=== PATIENT | female | born 1990 ===

== ENCOUNTER 2016-12-20 17:30 | Emergency (ER) | payer MEDICAID ==
[2016-12-20 17:42] VITALS: BMI 27.4
[2016-12-20 17:48] VITALS: BP 111/73; PULSE 88; RESP 18; TEMP 98.7; O2SAT 99
--- NOTE | 2016-12-20 18:49 | ED PDOC ---
Arrival/HPI - General Chief Complaint: Back Pain Time Seen by Provider: 12/20/16 17:57 Historian: Patient - History of Present Illness Narrative History of Present Illness (Text): 12/20/16 20:03 26 yo F, currently 18 wks , with h/o sciatica, reports R sided low back pain, which is typical of her sciatica symptoms for the past several days. States that she is unsure of what medication to take since she is . Denies any trauma, injury, fever, chills, urinary symptoms, abdominal pain, vagina bleeding, bowel / bladder incontinence, weakness and numbness. Past Medical History - Provider Review Nursing Documentation Reviewed: Yes - Infectious Disease Hx of Infectious Diseases: None - Musculoskeletal/Rheumatological Hx Back Pain: Yes Other/Comment: Sciatica - Psychiatric Hx Bipolar Disorder: Yes Hx Substance Use: Yes - Anesthesia Hx Anesthesia: No Family/Social History - Physician Review Nursing Documentation Reviewed: Yes Family/Social History: No Known Family HX Smoking Status: before pre Hx Alcohol Use: Yes (before ) Frequency of alcohol use: Socially Hx Substance Use: Yes Substance used: marijuana Allergies/Home Meds Allergies/Adverse Reactions: Allergies No Known Allergies Allergy (Verified 12/20/16 17:41) Home Medications: Home Meds Medication Instructions Recorded Confirmed Lamotrigine [Lamictal] 1 tab PO DAILY 12/20/16 12/20/16 Vit Calc,Iron,Folic 1 tab PO DAILY 12/20/16 12/20/16 [ Vitamins] QUEtiapine [SEROquel] 100 mg PO DAILY 12/20/16 12/20/16 Review of Systems - Review of Systems Constitutional: Normal, Weight Change (related to ). absent: Fatigue, Fevers Respiratory: Normal. absent: SOB, Cough, Sputum Cardiovascular: Normal. absent: Chest Pain, Palpitations, Edema Gastrointestinal: Normal. absent: Abdominal Pain, Stool Changes, Appetite Changes Genitourinary Female: Normal. absent: Dysuria, Frequency, Hematuria Musculoskeletal: Normal, Back Pain. absent: Arthralgias, Neck Pain Skin: Normal. absent: Rash, Pruritis, Skin Lesions Physical Exam Vital Signs Reviewed: Yes Vital Signs Temp Pulse Resp BP Pulse Ox 12/20/16 17:47 98.7 F 88 18 111/73 99 Temperature: Afebrile Blood Pressure: Normal Pulse: Regular Respiratory Rate: Normal Appearance: Positive for: Well-Appearing, Non-Toxic, Comfortable Pain Distress: None Mental Status: Positive for: Alert and Oriented X 3 - Systems Exam Head: Present: Atraumatic, Normocephalic Neck: Present: Normal Range of Motion. No: MIDLINE TENDERNESS Respiratory/Chest: Present: Clear to Auscultation, Good Air Exchange. No: Respiratory Distress, Accessory Muscle Use, Wheezes, Rales, Rhonchi Cardiovascular: Present: Regular Rate and Rhythm, Normal S1, S2. No: Murmurs Abdomen: No: Tenderness, Distention, Rebound, Guarding, Mass/Organomegaly Back: Present: Normal Inspection. No: CVA Tenderness, Midline Tenderness, Paraspinal Tenderness Upper Extremity: Present: Normal Inspection, Normal ROM, NORMAL PULSES. No: Edema Lower Extremity: Present: Normal Inspection, NORMAL PULSES, Normal ROM. No: Edema Neurological: Present: GCS=15, CN II-XII Intact, Speech Normal, Motor Func Grossly Intact, Normal Sensory Function, Normal Cerebellar Funct, Gait Normal Skin: Present: Warm, Dry, Normal Color. No: Rashes Psychiatric: Present: Alert, Oriented x 3 Medical Decision Making ED Course and Treatment: 12/20/16 20:07 26 yo F, currently 18 wks , with h/o sciatica, reports R sided low back pain, which is typical of her sciatica symptoms for the past several days. Based on history and exam : likely low back pain, consider sciatica. Pt advised to OTC tylenol for pain as it is the only safe medication to take. Given Rx for flexeril (preg cat B). Advised to f/u with her pmd or OB for re- evaluation. Otherwise to return to the ER at any time for any new or worsening symptoms. - PA / MILK INSPECTOR / Resident Statement MD/DO has reviewed & agrees with the documentation as recorded. Disposition/Present on Arrival - Present on Arrival Any Indicators Present on Arrival: No History of DVT/PE: No History of Uncontrolled Diabetes: No Urinary Catheter: No History of Decub. Ulcer: No History Surgical Site Infection Following: None - Disposition Have Diagnosis and Disposition been Completed?: Yes Diagnosis: , Sciatica Disposition: HOME/ ROUTINE Disposition Time: 18:30 Patient Plan: Discharge Condition: STABLE Discharge Instructions (ExitCare): Sciatica (ED) Print Language: [place] Additional Instructions: Follow up with your pmd / OB in 2 days for re-evaluation. Continue taking tylenol. Take medication as prescribed. Return to the ER at any time for any new or worsening symptoms. Prescriptions: Cyclobenzaprine [Cyclobenzaprine HCl] 10 mg PO TID PRN #15 tab PRN Reason: Muscle Spasm Referrals: PCP,NO [Primary Care Provider] - Follow up with primary Forms: WORK NOTE
== END 2016-12-20 19:23 | disposition home or self-care (01) ==
LOC: ED 17:30
DX: O26.892 Other specified pregnancy related conditions, second trimester (principal); Z3A.18 18 weeks gestation of pregnancy; M54.30 Sciatica, unspecified side

== ENCOUNTER 2017-07-13 22:17 | Emergency (ER) | payer MEDICAID, OTHER ==
[2017-07-13 22:32] VITALS: BMI 29.0
[2017-07-13 22:33] VITALS: RESP 18
[2017-07-13] MEDS ORDERED: Sodium Chloride 0.9% 1,000 ML IV SCH (23:30)
[2017-07-13 23:57] LABS: BASO # 0.01 K/mm3 (0.0-2.0); BASO % 0.1 % (0.0-3.0); EOS # 0.1 (0.0-0.7); EOS % 0.8 % (1.5-5.0); GRAN # 8.56 (1.4-6.5); GRAN % 86.1 % (50.0-68.0); HEMOGLOBIN 12.2 g/dL (12.0-16.0); LYMPH # 0.9 (1.2-3.4); LYMPH % 8.7 % (22.0-35.0); MEAN CORPUSCULAR HEMOGLOBIN 28.6 pg (25.0-35.0); MEAN CORPUSCULAR HGB CONC 32.2 g/dl (31.0-37.0); MEAN PLATELET VOLUME 10.2 fl (7.0-11.0); MONO # 0.4 (0.1-0.6); MONO % 4.3 % (1.0-6.0); RBC 4.26 10^6/uL (3.5-6.1); RED CELL DISTRIBUTION WIDTH 12.3 % (11.5-14.5); WHITE BLOOD COUNT 9.9 10^3/ul (4.5-11.0)
--- NOTE | 2017-07-13 23:58 | ED PDOC ---
Arrival/HPI - General Chief Complaint: Flu-like Symptoms Time Seen by Provider: 07/13/17 23:01 Historian: Patient - History of Present Illness Narrative History of Present Illness (Text): 07/13/17 23:58 Alicia Pagan is a 26 year old female, whose past medical history includes sciatica, who presents to the emergency department complaining of flu-like symptoms. Patient states she has been experiencing productive cough with phlegm , body aches, diarrhea, and chills since yesterday. Patient notes associated headache and chest pain with deep inspiration. Patient became concerned and came in for further evaluation. Patient denies any fever, shortness of breath, nausea, vomiting, back pain, neck pain, dizziness, or any other complaints. Time/Duration: < week Symptom Onset: Gradual Symptom Course: Unchanged Activities at Onset: Light Context: Home Past Medical History - Provider Review Nursing Documentation Reviewed: Yes - Infectious Disease Hx of Infectious Diseases: None - Musculoskeletal/Rheumatological Hx Back Pain: Yes Other/Comment: Sciatica - Psychiatric Hx Bipolar Disorder: Yes Hx Substance Use: Yes - Anesthesia Hx Anesthesia: No Family/Social History - Physician Review Nursing Documentation Reviewed: Yes Family/Social History: Unknown Family HX Smoking Status: Current Some Days Smoker Hx Alcohol Use: Yes (before ) Hx Substance Use: Yes Substance used: marijuana Allergies/Home Meds Allergies/Adverse Reactions: Allergies No Known Allergies Allergy (Verified 12/20/16 17:41) Home Medications: Home Meds Medication Instructions Recorded Confirmed Lamotrigine [Lamictal] 1 tab PO DAILY 12/20/16 07/13/17 QUEtiapine [SEROquel] 100 mg PO DAILY 12/20/16 07/13/17 Review of Systems - Physician Review All systems were reviewed & negative as marked: Yes - Review of Systems Constitutional: Other (+chills) Eyes: Normal ENT: Normal Respiratory: Cough, Sputum. absent: SOB Cardiovascular: Chest Pain. absent: Palpitations Gastrointestinal: Diarrhea. absent: Nausea, Vomiting Genitourinary Female: Normal. absent: Dysuria, Frequency, Hematuria, Urine Output Changes Musculoskeletal: Other (+body aches). absent: Back Pain, Neck Pain Skin: Normal. absent: Rash Neurological: Headache. absent: Dizziness Endocrine: Normal Physical Exam Vital Signs Reviewed: Yes Vital Signs Temp Pulse Resp BP Pulse Ox 07/14/17 04:00 89 18 121/72 100 07/14/17 02:42 100.0 F H 91 H 18 120/61 98 07/14/17 02:39 90 18 120/61 99 07/13/17 23:06 102.3 F H 07/13/17 22:17 102.3 F H 69 18 132/84 97 Temperature: Febrile Blood Pressure: Normal Pulse: Regular Respiratory Rate: Normal Appearance: Positive for: Well-Appearing, Non-Toxic, Comfortable Pain Distress: None Mental Status: Positive for: Alert and Oriented X 3 - Systems Exam Head: Present: Atraumatic, Normocephalic Pupils: Present: PERRL Extroacular Muscles: Present: EOMI Conjunctiva: Present: Normal Mouth: Present: Moist Mucous Membranes Neck: Present: Normal Range of Motion. No: Meningeal Signs, MIDLINE TENDERNESS , Paraspinal Tenderness Respiratory/Chest: Present: Clear to Auscultation, Good Air Exchange. No: Respiratory Distress, Accessory Muscle Use Cardiovascular: Present: Regular Rate and Rhythm, Normal S1, S2. No: Murmurs Abdomen: Present: Normal Bowel Sounds. No: Tenderness, Distention, Peritoneal Signs Back: Present: Normal Inspection Upper Extremity: Present: Normal Inspection. No: Cyanosis, Edema Lower Extremity: Present: Normal Inspection. No: Edema, CALF TENDERNESS, Cyanosis Neurological: Present: GCS=15, CN II-XII Intact, Speech Normal Skin: Present: Warm, Dry, Normal Color. No: Rashes Psychiatric: Present: Alert, Oriented x 3, Normal Insight, Normal Concentration Medical Decision Making ED Course and Treatment: 07/14/17 00:15 Impression: 26 year old female presents to the emergency department with cough, diarrhea, body aches, chills, and chest pain with deep inspiration. Plan: -- EKG -- Chest X-ray -- Labs -- Rapid influenza -- UA --IV fluids -- Tylenol -- Toradol -- Reassess and disposition Prior Visits: Notes and results from previous visits were reviewed. Patient was last seen in the emergency department on 12/20/16 for back pain but was discharged home. Progress Notes: 07/14/17 00:39 EKG reviewed, Sinus tachycardia at 103 bpm. Non-specific T wave abnormality. 07/14/17 01:06 Chest X-ray reviewed, shows no acute processes. - Lab Interpretations Lab Results: 07/13/17 23:42 07/13/17 23:42 Lab Results 07/14/17 03:30: Urine Color Yellow, Urine Appearance Clear, Urine pH 7.0, Ur Specific [place] 1.010, Urine Protein 30 H, Urine Glucose (UA) Negative, Urine Ketones Trace H, Urine Blood Negative, Urine Nitrate Negative, Urine Bilirubin Negative, Urine Urobilinogen 0.2, Ur Leukocyte Esterase Negative, Urine RBC 0 - 2, Urine WBC 0 - 2, Ur Epithelial Cells 6 - 8, Urine Bacteria Few 07/13/17 23:42: D-Dimer, Quantitative 1605 H 07/13/17 23:42: Sodium 141, Potassium 3.8, Chloride 100, Carbon Dioxide 29, Anion Gap 15, BUN 9, Creatinine 0.8, Est GFR ( Amer) > 60, Est GFR (Non- Af Amer) > 60, Random Glucose 90, Calcium 10.0, Total Bilirubin 0.5, AST 55 H, ALT 51, Alkaline Phosphatase 94, Total Protein 8.9 H, Albumin 4.4, Globulin 4.4 , Albumin/Globulin Ratio 1.0 L 07/13/17 23:42: WBC 9.9, RBC 4.26, Hgb 12.2, Hct 37.9, MCV 89.0, MCH 28.6, MCHC 32.2, RDW 12.3, Plt Count 289, MPV 10.2, Gran % 86.1 H, Lymph % (Auto) 8.7 L, [place] % (Auto) 4.3, Eos % (Auto) 0.8 L, Baso % (Auto) 0.1, Gran # 8.56 H, Lymph # (Auto) 0.9 L, [place] # (Auto) 0.4, Eos # (Auto) 0.1, Baso # (Auto) 0.01 07/13/17 23:00: Influenza Typ A,B (EIA) Negative for flu a/b I have reviewed the lab results: Yes - RAD Interpretation Radiology Orders: 07/14/17 00:21 CHEST TWO VIEWS (PA/LAT) [RAD] Stat 07/14/17 02:05 ANGIO CHEST PE PROTOCOL [CT] Stat - Medication Orders Current Medication Orders: Discontinued Medications Acetaminophen (Tylenol 325mg Tab) 975 mg PO STAT STA Stop: 07/13/17 22:59 Last Admin: 07/13/17 23:06 Dose: 975 mg MAR Pain/Vitals Document 07/13/17 23:06 AD (Rec: 07/13/17 23:07 AD [id number]) Vitals Temperature (97.6 F-99.6 F) 102.3 F Temperature Source Oral Azithromycin (Zithromax) 500 mg PO ONCE STA PRN Reason: Protocol Stop: 07/14/17 04:25 Last Admin: 07/14/17 04:52 Dose: 500 mg Sodium Chloride (Sodium Chloride 0.9%) 1,000 mls @ 1,000 mls/hr IV .Q1H WYATT Last Admin: 07/13/17 23:40 Dose: 1,000 mls/hr eMAR Start Stop Document 07/13/17 23:40 AD (Rec: 07/14/17 00:22 AD [id number]) Intravenous Solution Start Date 07/14/17 Start Time 23:40 Ketorolac Tromethamine (Toradol) 30 mg IVP ONCE ONE Stop: 07/13/17 23:45 Last Admin: 07/13/17 23:50 Dose: 30 mg MAR Pain Assessment Document 07/13/17 23:50 AD (Rec: 07/14/17 00:21 AD [id number]) Pain Reassessment Is this a pain reassessment? No Presence of Pain Presence of Pain Yes Description Intensity of Pain at present 8 Pain Behavior Facial Grimacing IVP Administration Document 07/13/17 23:50 AD (Rec: 07/14/17 00:21 AD [id number]) Charges for Administration # of IVP Administrations 1 Oseltamivir Phosphate (Tamiflu Cap) 75 mg PO BID WYATT PRN Reason: Protocol Stop: 07/19/17 04:24 Oseltamivir Phosphate (Tamiflu Cap) 75 mg PO STAT STA PRN Reason: Protocol Stop: 07/14/17 04:43 Last Admin: 07/14/17 04:52 Dose: 75 mg - Scribe Statement The provider has reviewed the documentation as recorded by the [facility] Karon Duenas All medical record entries made by the Blanka were at my direction and personally dictated by me. I have reviewed the chart and agree that the record accurately reflects my personal performance of the history, physical exam, medical decision making, and the department course for this patient. I have also personally directed, reviewed, and agree with the discharge instructions and disposition. Disposition/Present on Arrival - Present on Arrival Any Indicators Present on Arrival: No History of DVT/PE: No History of Uncontrolled Diabetes: No Urinary Catheter: No History of Decub. Ulcer: No History Surgical Site Infection Following: None - Disposition Have Diagnosis and Disposition been Completed?: Yes Diagnosis: Influenza, Pneumonia Disposition: HOME/ ROUTINE Disposition Time: 05:00 Condition: GOOD Discharge Instructions (ExitCare): Influenza (ED), Community Acquired Pneumonia (ED) Prescriptions: Oseltamivir [Tamiflu] 75 mg PO BID #10 cap Azithromycin [Zithromax] 250 mg PO DAILY #4 tab Forms: [facility] ([place]), WORK NOTE
[2017-07-14 00:15] LABS: ALBUMIN 4.4 g/dL (3.0-4.8); ALT/SGPT 51 U/L (7-56); AST/SGOT 55 U/L (14-36); BLOOD UREA NITROGEN 9 mg/dL (7-21); GFR AFRICAN-AMERICAN > 60; GFR NON-AFRICAN AMERICAN > 60
[2017-07-14] MEDS ORDERED: Iodixanol 320 MG/ML 100 ML BOTTLE IV ONE (02:14)
[2017-07-14 02:43] VITALS: TEMP 100
--- NOTE | 2017-07-14 03:42 | CT ---
EXAM: CT Angiography Chest With Intravenous Contrast CLINICAL HISTORY: 26 years old, female; Pain; Chest pain TECHNIQUE: Axial computed tomographic angiography images of the chest with intravenous contrast using pulmonary embolism protocol. All CT scans at this facility use one or more dose reduction techniques, viz.: automated exposure control; ma/kV adjustment per patient size (including targeted exams where dose is matched to indication; i.e. head); or iterative reconstruction technique. MIP reconstructed images were created and reviewed. Coronal and sagittal reformatted images were created and reviewed. CONTRAST: 96 mL of visi 320 administered intravenously. COMPARISON: DX - CHEST TWO VIEWS (PA/LAT) 2017-07-14 00:50 FINDINGS: Limitations: Motion artifact - mild to moderate. Suboptimal timing of bolus. Pulmonary arteries: No definite pulmonary embolism. Aorta: No aneurysm. No dissection. Lungs: Mild patchy and confluent airspace disease medial right lower lobe. Pleural space: No significant effusion. No pneumothorax. Heart: No cardiomegaly. No significant pericardial effusion. Bones/joints: No acute fracture. Soft tissues: Unremarkable. Lymph nodes: No pathologically enlarged lymph nodes. IMPRESSION: 1. No definite CT evidence of pulmonary embolism. 2. Probable RLL pneumonia. Followup to resolution to exclude underlying pathology.
[2017-07-14 03:50] LABS: URINE BILIRUBIN NEGATIVE (NEGATIVE); URINE BLOOD NEGATIVE (NEGATIVE); URINE GLUCOSE (UA) NEGATIVE (NEGATIVE); URINE LEUKOCYTE ESTERASE NEGATIVE Leu/uL (NEGATIVE); URINE NITRATE NEGATIVE (NEGATIVE); URINE PROTEIN 30 mg/dL (<30 mg/dL); URINE UROBILINOGEN 0.2 E.U./dL (<1 E.U./dL)
[2017-07-14 03:55] LABS: URINE APPEARANCE CLEAR (CLEAR); URINE COLOR YELLOW (YELLOW)
[2017-07-14 04:09] LABS: URINE BACTERIA FEW (NEG); URINE RBC 0 - 2 /hpf (0-2); URINE WBC 0 - 2 /hpf (0-6)
[2017-07-14 05:06] VITALS: BP 121/72; PULSE 89; O2SAT 100
--- NOTE | 2017-07-14 10:06 | RAD ---
HISTORY: COMPARISON: No prior. TECHNIQUE: Chest PA and lateral FINDINGS: LINES AND TUBES: None. LUNG AND PLEURA: The lungs are well inflated. There is consolidation with air bronchogram in the right lower lobe. The left lung is clear HEART AND MEDIASTINUM: The heart is not enlarged. The hilar and mediastinal contours are within normal limits. SKELETAL STRUCTURES: The bony structures are within normal limits for the patient's age. VISUALIZED UPPER ABDOMEN: Normal. OTHER FINDINGS: None. IMPRESSION: Right lower lobe pneumonia. Follow-up to resolution is advised.
--- NOTE | 2017-07-14 10:33 | CARD ---
APPROVED REPORT EKG Measurement Heart [id number] <Conclusion> Sinus tachycardia Nonspecific T wave abnormality
== END 2017-07-14 05:00 | disposition home or self-care (01) ==
LOC: ED 22:17
DX: J18.9 Pneumonia, unspecified organism (principal); J11.1 Influenza due to unidentified influenza virus with other respiratory manifestations; F17.210 Nicotine dependence, cigarettes, uncomplicated
CPT/HCPCS: 71046; 71275; 80053; 81001; 85025; 85378; 87804; 93005; 96374; 99285; J1885; J7040; Q9967